=== PATIENT | female | born 1960 | race Caucasian/White ===

== ENCOUNTER 2018-02-03 13:32 | Outpatient (CLI) | payer BC | END 2018-02-03 13:33 | disposition home or self-care (01) | LOC: LABBT 13:32 | PROVIDERS: ATTEND Orthopaedic Surgery | DX: Z01.818 Encounter for other preprocedural examination (principal); S43.431A Superior glenoid labrum lesion of right shoulder, initial encounter ==

== ENCOUNTER 2018-02-08 08:51 | Day surgery (SDC) | payer BC ==
[2018-02-03 13:40] VITALS: BMI 18.8
[2018-02-08] MEDS ORDERED: CEFAZOLIN/Water 2 GM/20 ML SYRINGE ONE (10:05)
[2018-02-08] MEDS ORDERED: Fentanyl 100 MCG/2 ML VIAL ONE ×2 (10:06→10:31)
[2018-02-08] MEDS ORDERED: Ondansetron HCl/PF 4 MG/2 ML Vial ONE ×2 (10:06→15:12)
[2018-02-08] MEDS ORDERED: Famotidine/PF 20 mg/2ml Vial ONE (10:06)
[2018-02-08] MEDS ORDERED: Midazolam HCl 2 mg/2 ml Vial ONE (10:31)
[2018-02-08] MEDS ORDERED: HYDROcodone/Acetaminophen 5/325 mg Tablet PO PRN ×2 (10:58)
[2018-02-08] MEDS ORDERED: Zolpidem Tartrate 5 MG TAB PO PRN (10:58)
[2018-02-08] MEDS ORDERED: traMADol HCl 50 MG TAB PO PRN ×2 (10:58)
[2018-02-08] MEDS ORDERED: Ketorolac Tromethamine 30 MG/ML VIAL IVP PRN (10:58)
[2018-02-08] MEDS ORDERED: Promethazine HCl 25 MG/ML VIAL IM PRN (10:58)
[2018-02-08] MEDS ORDERED: Ropivacaine HCl/PF 1,100 MG in Sodium Chloride 0.9% 440 ML NERVE BLCK SCH (10:58)
[2018-02-08] MEDS ORDERED: Ondansetron HCl/PF 4 MG/2 ML Vial IVP PRN (10:58)
[2018-02-08] MEDS ORDERED: Fentanyl 100 MCG/2 ML VIAL IV PRN (10:59)
[2018-02-08] MEDS ORDERED: Bupivacaine/Epinephrine 0.25% 30 ML VIAL ONE (11:43)
[2018-02-08] MEDS ORDERED: Ropivacaine 0.2% HCl/PF (40 MG/20 ML VIAL) ONE (11:46)
[2018-02-08] MEDS ORDERED: Ropivacaine 0.5% HCl/PF (150 MG/30 ML VIAL) ONE (11:46)
[2018-02-08] MEDS ORDERED: Promethazine HCl 25 MG/ML VIAL ONE (13:01)
--- NOTE | 2018-02-08 13:16 | OP ---
DATE OF PROCEDURE: 02/08/2018 PREOPERATIVE DIAGNOSIS: Right shoulder SLAP tear which is creating an unstable biceps tendon and lili n in the arm. POSTOPERATIVE DIAGNOSIS: Right shoulder SLAP tear which is creating an unstable biceps tendon and pa in in the arm. PROCEDURE PERFORMED: 1. Right shoulder arthroscopy with subacromial decompression. 2. Open biceps tenodesis. SURGEON: Luis Rowan M.D. [employer] OPERATOR: Demar Gould PA-C. BLOOD LOSS: Minimal. COMPLICATIONS: None. ANESTHESIA: She had general anesthetic, she also had a block. DISPOSITION: She did go to recovery room in stable condition. IMPLANTS: An [employer] Bio[employer]posite 7 x 23 Bio-Tenodesis screw. She did go to recovery in stable cond ition. INDICATIONS: Active 57-year-old female who has failed nonoperative treatment for right shoulder pain . It was felt to have a degenerative SLAP tear which created biceps pain. At this time, she opted f or surgery. TECHNIQUE: After all appropriate consent forms were explained and signed, she was taken to the opera ting room and at this time was given general anesthetic. Once the level of anesthesia was appropriat e, she was rolled into left lateral decubitus position with all bony prominences well-padded. An axi llary roll was placed underneath the left axilla. The valdez bag was inflated to hold in this arm in t his position. The arm was then suspended with 5 pounds. The right shoulder and upper extremity were prepped and draped in the standard surgical fashion. Bony anatomic landmarks were drawn out and sub acromial space was infiltrated with Marcaine with epinephrine. Posterior portal was then established and the scope was placed into the shoulder joint. Anterior working portal was then made using a nee dle localization technique. Diagnostic arthroscopy commenced. The articular surface of the humeral head and glenoid were in good condition. No loose bodies were noted in the axillary pouch. Inferior , posterior and anterior labrum were in good condition. There was a degenerative type 2 SLAP tear wh ich made the biceps unstable at its insertion site. The biceps tendon itself had significant amount of synovitis circumferentially around it and as I have visualized the biceps exited the shoulder join t. Again, there was a significant amount of synovitic change in the bicipital groove region. The currie bscapularis was intact. At this time, a needle was used to place a suture through the biceps and art hroscopic scissors were used to remove it off the superior labrum. This area was debrided with the s haver. At this time, scope was removed and replaced in the subacromial space. Lateral working suzy l was made. We removed the bursa from off the underlying cuff and performed a small decompression us ing the surface energy and shaver. The rotator cuff itself was in good condition. At this time, sco pe was removed, shoulder was drained. We then made a longitudinal incision just posterior to where o ur needle stick was down through skin. Bovie was used to coagulate any brisk venous bleeding. We en tered the deltoid fascia sharply and used finger dissection to get down through the deltoid to the un derlying transverse humeral ligament. This was opened up in its entirety and all synovitic tissue wa s coagulated. Once the biceps was completely freed up, we went ahead and sutured it. We then remove d the intra-articular portion. We then placed our drill pin followed by drilling with a 7-mm reamer to a depth of 25. We then placed a 7 x 23 Bio[employer]posite Bio-Tenodesis screw in standard fashion. Sut ures were tied over top of this, so the screw could not back out. We then thoroughly irrigated and d ried. Running Vicryl was used to close our deltoid fascia, 2-0 Vicryl and nylon sutures were used fo r skin. All portals were closed with simple nylon stitch. Bulky sterile dressing was applied. Katherin ent was awakened. She was taken to the recovery room in stable condition. All counts were correct a t the end of the case. She received preoperative IV antibiotics.
[2018-02-08] MEDS ORDERED: Ketorolac Tromethamine 30 MG/ML VIAL ONE (15:12)
[2018-02-08] MEDS ORDERED: PROPOFOL 200 MG/20 ML VIAL ONE (15:12)
[2018-02-08] MEDS ORDERED: Lidocaine 1% PF 5 ML VIAL ONE (15:12)
[2018-02-08] MEDS ORDERED: Dexamethasone 20 MG/5 ML VIAL ONE (15:12)
[2018-02-08] MEDS ORDERED: ePHEDrine/0.9% NaCl/PF SYRINGE 50 mg/10 ml ONE (15:12)
[2018-02-08] MEDS ORDERED: Glycopyrrolate 0.2 MG/ML 5 ML SYRINGE ONE (15:12)
== END 2018-02-08 16:15 | disposition home or self-care (01) ==
LOC: SDC 08:51
PROVIDERS: ATTEND Orthopaedic Surgery
PROC: 0LS10ZZ Reposition Right Shoulder Tendon, Open Approach (ICD-10-PCS; principal; 2018-02-08)
PROC: 0RBJ4ZZ Excision of Right Shoulder Joint, Percutaneous Endoscopic Approach (ICD-10-PCS; principal; 2018-02-08)
DX: S43.431A Superior glenoid labrum lesion of right shoulder, initial encounter (principal); M25.311 Other instability, right shoulder; F32.9 Major depressive disorder, single episode, unspecified; Z87.891 Personal history of nicotine dependence; Z79.899 Other long term (current) drug therapy
CPT/HCPCS: 96374; C1713; J0131; J1100; J1885; J2001; J2250; J2405; J2550; J2704; J2795; J3010; J7050; S0028

== ENCOUNTER 2021-08-07 09:48 | Outpatient (CLI) | payer BC | END 2021-08-07 09:49 | disposition home or self-care (01) | LOC: BICMAMMO 09:48 | PROVIDERS: ATTEND Family Medicine | DX: Z13.820 Encounter for screening for osteoporosis (principal); M85.89 Other specified disorders of bone density and structure, multiple sites; Z78.0 Asymptomatic menopausal state | CPT/HCPCS: 77080 ==

== ENCOUNTER 2024-09-27 10:52 | Outpatient (CLI) | payer MEDICARE, BC | END 2024-09-27 10:53 | disposition home or self-care (01) | LOC: BICMAMMO 10:52 | PROVIDERS: ATTEND Family Medicine | DX: Z78.0 Asymptomatic menopausal state (principal); M81.0 Age-related osteoporosis without current pathological fracture; M85.851 Other specified disorders of bone density and structure, right thigh | CPT/HCPCS: 77080 ==